=== PATIENT | male | born 1995 | race Asian ===

== ENCOUNTER 2024-08-01 21:50 | Outpatient (CLI) | payer OTHER, SELFPAY | END 2024-08-01 21:51 | disposition home or self-care (01) | LOC: AMB 08-02 10:34 | PROVIDERS: Visit Provider Family Medicine | DX: S09.90XA Unspecified injury of head, initial encounter (principal); S81.011A Laceration without foreign body, right knee, initial encounter; S61.422A Laceration with foreign body of left hand, initial encounter; S61.421A Laceration with foreign body of right hand, initial encounter; S01.01XA Laceration without foreign body of scalp, initial encounter; V47.0XXA Car driver injured in collision with fixed or stationary object in nontraffic accident, initial encounter; Y92.410 Unspecified street and highway as the place of occurrence of the external cause | CPT/HCPCS: A0425; A0429 ==

== ENCOUNTER 2024-08-01 22:25 | Emergency (ER) | payer OTHER, SELFPAY ==
[2024-08-01] VITALS (8 sets, daily range): BP systolic 126–144; BP diastolic 58–79; PULSE 86–91; RESP 13–20; O2SAT 96–99
--- OUTSIDE RECORDS SUMMARY | 2024-08-01 22:27 | XMS_ITS | Clinical Summary ---
Author Organization 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 Social History Tobacco Use Types Packs/Day Years Used Date Smoking Tobacco: Never Smokeless Tobacco: Never Tobacco Cessation:Counseling Given: Yes Alcohol Use Standard Drinks/Week Comments Not Asked 0 (1 standard drink = 0.6 oz pur e alcohol) Sex and Gender Information Value Date Recorded Sex Assigned at Not on file Legal Sex Male 8:42 AM [employer]IC [employer] Gender Identity Not on file Sexual Orientation Not on file Obstetrics History Last Filed Vital Signs Vital Sign Reading Time Taken Comments Blood Pressure 130/67 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 Pulse 76 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 Temperature 36.9 C (98.5 F) 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 Respiratory Rate 16 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 Oxygen Saturation 96% 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 Inhaled Oxygen Concentration - - Weight 88.5 kg (195 lb) 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 Height 175.3 cm (5' 9) 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 Body Mass Index 28.8 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 Plan of Treatment Health Maintenance Due Date Last Done Comments Tdap 07/22/2006 Depression screening for age 12+ 2007 HIV for age 15-65 07/22/2010 Hepatitis C screening for ag e 18-79 07/22/2013 Hepatitis B series for 19+ ( 1 of 3 - 19+ 3-dose series) 07/22/2014 Tetanus booster 2015 BMI (ht and wt on same day) for age 18+ 10/04/2016 10/05/2015 COVID-19 vaccine series ( - 2023- season) 2023 Influenza Vaccine (Season Ended) 2024 Pneumococcal series for age 6-49 Aged Out No longer eligible based on patient's age to complete this topic Insurance [facility] Care Teams District Agent Relationship Specialty Start Date End Date Pcp, No . PCP - General 01/05/18 Ed Carter DPM PODIATRY Podiatry 01/03/12
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
[2024-08-01 22:54] LABS: Basophils Absolute Auto 0.02 K/uL (0.00-0.30); Basophils Percent Auto 0.3 % (0.0-3.0); Eosinophils Absolute Auto 0.12 K/uL (0.00-0.50); Eosinophils Percent Auto 1.8 % (0.0-7.0); Hematocrit 44.9 % (37.0-53.0); Hemoglobin* 15.4 gm/dL (13.5-17.5); Immature Granulocytes Abs Auto 0.12 K/uL (0.00-0.30); Immature Granulocytes Pct Auto 1.8 %; Lymphocytes Absolute Auto 2.32 K/uL (0.90-2.90); Lymphocytes Percent Auto 35.4 % (20-44); Mean Corpuscular HGB Conc 34 gm/dL (32-36); Mean Corpuscular Hemoglobin 30 pg (26-34); Mean Corpuscular Volume 88 fL (80-100); Monocytes Percent Auto 5.8 % (0.0-11.0); Neutrophils Absolute Auto 3.59 K/uL (1.7-7.0); Neutrophils Percent Auto 54.9 % (42.0-72.0); Platelet Count* 271 K/uL (140-440); RDW Coefficient of Variation % 12.2 % (11.5-15.5); Red Blood Count 5.13 m/uL (4.30-5.90); Slide Review Reflex No; White Blood Count* 6.55 K/uL (4.50-11.00)
[2024-08-01 23:04] LABS: Chloride* 104 mmol/L (96-114); Potassium* 4.2 mmol/L (3.6-5.1); Sodium* 140 mmol/L (135-149)
[2024-08-01 23:06] LABS: Blood Urea Nitrogen* 19 mg/dL (5-24); Estimated Glomerular Filt Rate 104 ml/min
[2024-08-01 23:07] LABS: Anion Gap 10 mEq/L (7-15); Calcium* 8.9 mg/dL (8.4-10.6); Carbon Dioxide* 26 mmol/L (20-32); Ethanol* 0.16 % (0.01-0.03); Glucose* 109 mg/dL (60-115)
[2024-08-01 23:12] LABS: Prothrombin Time 12.8 Seconds
[2024-08-01 23:16] LABS: INR 0.89 (0.91-1.10)
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
[2024-08-02 00:01] VITALS: BP 145/96; PULSE 85; RESP 22; O2SAT 97
[2024-08-02 00:08] VITALS: BP 146/86; PULSE 95; RESP 14; TEMP 37.1; O2SAT 97; BMI 28.8
[2024-08-02 00:17] VITALS: BP 120/75; PULSE 85; RESP 22; O2SAT 98
--- OUTSIDE RECORDS SUMMARY | 2024-08-02 00:18 | XMS_ITS | Clinical Summary ---
Author Organization [employer] [facility] Address [address] [place] [id number] Care Team Providers Care Device Engineer Name Role Phone Ed Carter DPM Unavailable [phone] Pcp, No Primary Care Provider Unavailabl e [...] on file Legal Sex Male 8:42 AM FAMILY RESOURCE MANAGEMENT SPECIALIST Gender Identity Not on file Sexual Orientation Not on file Obstetrics History Last Filed Vital Signs Vital Sign Reading Time Taken Comments Blood Pressure 130/67 01/05/2018 9:43 PM FAMILY RESOURCE MANAGEMENT SPECIALIST Pulse 76 01/05/2018 9:43 PM FAMILY RESOURCE MANAGEMENT SPECIALIST Temperature 36.9 C (98.5 F) 01/05/2018 9:43 PM FAMILY RESOURCE MANAGEMENT SPECIALIST Respiratory Rate 16 01/05/2018 9:43 PM FAMILY RESOURCE MANAGEMENT SPECIALIST Oxygen Saturation 96% 01/05/2018 9:43 PM FAMILY RESOURCE MANAGEMENT SPECIALIST Inhaled Oxygen Concentration - - Weight 88.5 kg (195 lb) 01/05/2018 9:43 PM FAMILY RESOURCE MANAGEMENT SPECIALIST Height 175.3 cm (5' 9) 01/05/2018 9:43 PM FAMILY RESOURCE MANAGEMENT SPECIALIST Body Mass Index 28.8 01/05/2018 9:43 PM FAMILY RESOURCE MANAGEMENT SPECIALIST Plan of Treatment Health Maintenance Due Date [...] patient's age to complete this topic Insurance [facility] Care Teams Device Engineer Relationship Specialty Start Date End Date Pcp, No . PCP - General 01/05/18 Ed Carter DPM PODIATRY Podiatry 01/03/12
[2024-08-02 00:31] VITALS: BP 125/73; PULSE 84; RESP 22; TEMP 36.7; O2SAT 98
[2024-08-02 00:50] VITALS: BP 135/78; PULSE 85; RESP 22; TEMP 36.7; O2SAT 98
[2024-08-02 00:53] VITALS: BP 135/78; PULSE 85; RESP 22; TEMP 36.7
== END 2024-08-02 00:53 | disposition home or self-care (01) ==
PROVIDERS: Emergency Provider Emergency Medicine
DX: S61.422A Laceration with foreign body of left hand, initial encounter (principal); S80.811A Abrasion, right lower leg, initial encounter; S80.212A Abrasion, left knee, initial encounter; S80.211A Abrasion, right knee, initial encounter; R07.9 Chest pain, unspecified; R10.9 Unspecified abdominal pain; F10.129 Alcohol abuse with intoxication, unspecified; V43.52XA Car driver injured in collision with other type car in traffic accident, initial encounter; Y92.414 Local residential or business street as the place of occurrence of the external cause
CPT/HCPCS: 36415; 70450; 71260; 72125; 73130; 73562; 74177; 80048; 82077; 85025; 85610; 94761; 99284; 99285; 99291; G0390; Q9967